=== PATIENT | female | born 2000 | race Caucasian/White ===

== ENCOUNTER 2024-04-22 11:12 | Emergency (ER) | payer BC ==
[2024-04-22] MEDS ORDERED: Dexamethasone 10 MG/ML VIAL ONE (11:48)
[2024-04-22] MEDS ORDERED: Acetaminophen 500 MG TAB ONE (11:48)
[2024-04-22] MEDS ORDERED: Metoclopramide HCl 10 MG (2 mL) VIAL ONE (11:48)
== END 2024-04-22 13:24 | disposition home or self-care (01) ==
LOC: ERS 11:12
DX: G43.909 Migraine, unspecified, not intractable, without status migrainosus (principal); Z87.891 Personal history of nicotine dependence
CPT/HCPCS: 96374; 96375; J1100; J2765